=== PATIENT | male | born 1960 | race Caucasian/White ===

== ENCOUNTER → 2016-08-31 | Outpatient (CLI) | payer MEDICAID ==
[~2016-08-31] MED LIST: ASPI325T6 PO; ASPIRIN 32325 MG/TAB PO; CIALIS2.5 MG PO; FLAGYL 250250 MG/TAB PO; LEVAQUIN 750MG750 M1 PO; MILK OF MA400 MG/52 PO; NORCO 325 MG-51 TAB PO; NORCO 325 MG-7.1 TAB PO; OXYCONTIN40 MG PO; ROBAXIN 50500 MG/TAB PO; ROXICODONE 55 MG/TAB PO; SENOKOT8.6 MG PO; SEROQUEL50 MG PO; TOPROL XL 25MG25 MG PO; TYLENOL 500MG500 MG PO; WELLBUTRIN 75MG75 MG PO; XANAX 0.5MG0.5 MG PO
== END ==
LOC: MHCPAIN 09:00
DX: Z53.9 Procedure and treatment not carried out, unspecified reason (principal)
CPT/HCPCS: G0463

== ENCOUNTER → 2016-10-18 | Outpatient (CLI) | payer MEDICAID | LOC: COL.RAD 13:00 | DX: M25.552 Pain in left hip (principal); M25.551 Pain in right hip | CPT/HCPCS: G0260; J3301 ==

== ENCOUNTER → 2016-12-12 | Outpatient (CLI) | payer MEDICAID | LOC: MHCPAIN 09:37 | DX: G89.29 Other chronic pain (principal); M47.27 Other spondylosis with radiculopathy, lumbosacral region; M96.1 Postlaminectomy syndrome, not elsewhere classified; M53.3 Sacrococcygeal disorders, not elsewhere classified | CPT/HCPCS: G0463 ==

== ENCOUNTER → 2017-01-02 | Outpatient (CLI) | payer MEDICAID | LOC: COL.RAD 13:00 | DX: M53.3 Sacrococcygeal disorders, not elsewhere classified (principal) | CPT/HCPCS: G0260; J3301 ==

== ENCOUNTER → 2017-01-19 | Outpatient (CLI) | payer MEDICAID | LOC: BHSO 09:10 | DX: Z01.818 Encounter for other preprocedural examination (principal) ==

== ENCOUNTER → 2017-04-05 | Outpatient (CLI) | payer MEDICAID | LOC: MHCPAIN 09:23 | DX: G89.29 Other chronic pain (principal); M47.27 Other spondylosis with radiculopathy, lumbosacral region; M53.3 Sacrococcygeal disorders, not elsewhere classified; M96.1 Postlaminectomy syndrome, not elsewhere classified; Z79.82 Long term (current) use of aspirin | CPT/HCPCS: G0463 ==

== ENCOUNTER → 2017-04-12 | Outpatient (CLI) | payer MEDICAID | LOC: MHCPAIN 10:58 | DX: G89.29 Other chronic pain (principal); M47.27 Other spondylosis with radiculopathy, lumbosacral region; M53.3 Sacrococcygeal disorders, not elsewhere classified; M96.1 Postlaminectomy syndrome, not elsewhere classified; Z79.82 Long term (current) use of aspirin | CPT/HCPCS: G0463 ==

== ENCOUNTER → 2017-05-23 | Outpatient (CLI) | payer MEDICAID | LOC: MHCPAIN 11:56 | DX: G89.29 Other chronic pain (principal); M47.27 Other spondylosis with radiculopathy, lumbosacral region; M53.3 Sacrococcygeal disorders, not elsewhere classified; M96.1 Postlaminectomy syndrome, not elsewhere classified | CPT/HCPCS: G0463 ==

== ENCOUNTER → 2017-05-25 | Outpatient (CLI) | payer MEDICAID | LOC: MHCPAIN 13:11 | DX: M54.16 Radiculopathy, lumbar region (principal); M96.1 Postlaminectomy syndrome, not elsewhere classified | CPT/HCPCS: J0690; J2250; J3010 ==

== ENCOUNTER → 2017-06-02 | Outpatient (CLI) | payer MEDICAID | LOC: MHCPAIN 09:12 | DX: G89.29 Other chronic pain (principal); M47.27 Other spondylosis with radiculopathy, lumbosacral region; M53.3 Sacrococcygeal disorders, not elsewhere classified; M96.1 Postlaminectomy syndrome, not elsewhere classified; Z79.82 Long term (current) use of aspirin | CPT/HCPCS: G0463 ==

== ENCOUNTER → 2017-07-06 | Outpatient (CLI) | payer MEDICAID | LOC: MHCPAIN 11:02 | DX: M47.817 Spondylosis without myelopathy or radiculopathy, lumbosacral region (principal); M53.3 Sacrococcygeal disorders, not elsewhere classified; Z98.1 Arthrodesis status ==

== ENCOUNTER → 2017-07-10 | Outpatient (CLI) | payer MEDICAID | LOC: MHCPAIN 15:50 | DX: G89.29 Other chronic pain (principal); M47.27 Other spondylosis with radiculopathy, lumbosacral region; M53.3 Sacrococcygeal disorders, not elsewhere classified; M96.1 Postlaminectomy syndrome, not elsewhere classified | CPT/HCPCS: G0463 ==

== ENCOUNTER → 2017-07-27 | Outpatient (CLI) | payer MEDICAID | LOC: MHCPAIN 09:41 | DX: M47.817 Spondylosis without myelopathy or radiculopathy, lumbosacral region (principal) | CPT/HCPCS: J1100; J2250; J3010 ==

== ENCOUNTER → 2017-08-28 | Outpatient (CLI) | payer MEDICAID | LOC: MHCPAIN 10:22 | DX: G89.29 Other chronic pain (principal); M47.27 Other spondylosis with radiculopathy, lumbosacral region; M53.3 Sacrococcygeal disorders, not elsewhere classified; M96.1 Postlaminectomy syndrome, not elsewhere classified | CPT/HCPCS: G0463 ==

== ENCOUNTER → 2017-09-21 | Outpatient (CLI) | payer MEDICAID | LOC: MHCPAIN 12:51 | DX: M51.16 Intervertebral disc disorders with radiculopathy, lumbar region (principal); M96.1 Postlaminectomy syndrome, not elsewhere classified; Z98.1 Arthrodesis status | CPT/HCPCS: J1040; Q9967 ==

== ENCOUNTER → 2017-10-10 | Outpatient (CLI) | payer MEDICAID | LOC: MHCPAIN 13:13 | DX: G89.29 Other chronic pain (principal); M47.817 Spondylosis without myelopathy or radiculopathy, lumbosacral region; M54.16 Radiculopathy, lumbar region; M53.3 Sacrococcygeal disorders, not elsewhere classified; M96.1 Postlaminectomy syndrome, not elsewhere classified | CPT/HCPCS: G0463 ==

== ENCOUNTER → 2017-12-01 | Outpatient (CLI) | payer MEDICAID | LOC: MHCPAIN 11:41 | DX: G89.29 Other chronic pain (principal); M47.817 Spondylosis without myelopathy or radiculopathy, lumbosacral region; M54.16 Radiculopathy, lumbar region; M53.3 Sacrococcygeal disorders, not elsewhere classified; M96.1 Postlaminectomy syndrome, not elsewhere classified | CPT/HCPCS: G0463 ==

== ENCOUNTER → 2018-01-10 | Outpatient (CLI) | payer BC | LOC: MHCPAIN 11:45 | DX: G89.29 Other chronic pain (principal); M47.817 Spondylosis without myelopathy or radiculopathy, lumbosacral region; M54.16 Radiculopathy, lumbar region; M53.3 Sacrococcygeal disorders, not elsewhere classified; M96.1 Postlaminectomy syndrome, not elsewhere classified | CPT/HCPCS: G0463 ==

== ENCOUNTER → 2018-01-11 | Outpatient (CLI) | payer BC | LOC: MHCPAIN 09:50 | DX: M47.817 Spondylosis without myelopathy or radiculopathy, lumbosacral region (principal); M53.3 Sacrococcygeal disorders, not elsewhere classified ==

== ENCOUNTER → 2018-03-15 | Outpatient (CLI) | payer BC | LOC: MHCPAIN 08:20 | DX: M51.36 Other intervertebral disc degeneration, lumbar region (principal) | CPT/HCPCS: J1040; Q9967 ==

== ENCOUNTER → 2018-06-12 | Outpatient (CLI) | payer BC | LOC: MHCPAIN 09:05 | DX: G89.29 Other chronic pain (principal); M47.817 Spondylosis without myelopathy or radiculopathy, lumbosacral region; M54.16 Radiculopathy, lumbar region; M53.3 Sacrococcygeal disorders, not elsewhere classified; M96.1 Postlaminectomy syndrome, not elsewhere classified | CPT/HCPCS: G0463 ==

== ENCOUNTER → 2018-07-30 | Outpatient (CLI) | payer BC | LOC: MHCPAIN 12:01 | DX: M47.817 Spondylosis without myelopathy or radiculopathy, lumbosacral region (principal); M54.16 Radiculopathy, lumbar region ==

== ENCOUNTER → 2018-08-09 | Outpatient (CLI) | payer BC | LOC: MHCPAIN 13:51 | DX: M47.817 Spondylosis without myelopathy or radiculopathy, lumbosacral region (principal); M54.16 Radiculopathy, lumbar region | CPT/HCPCS: J1100; J2250; J3010 ==

== ENCOUNTER → 2018-09-06 | Outpatient (CLI) | payer BC | LOC: MHCPAIN 11:20 | DX: G89.29 Other chronic pain (principal); M47.817 Spondylosis without myelopathy or radiculopathy, lumbosacral region; M54.16 Radiculopathy, lumbar region; M53.3 Sacrococcygeal disorders, not elsewhere classified; M96.1 Postlaminectomy syndrome, not elsewhere classified | CPT/HCPCS: G0463; J1040; Q9967 ==

== ENCOUNTER → 2018-10-02 | Outpatient (CLI) | payer BC | LOC: MHCPAIN 09:48 | DX: G89.29 Other chronic pain (principal); M47.817 Spondylosis without myelopathy or radiculopathy, lumbosacral region; M54.16 Radiculopathy, lumbar region; M53.3 Sacrococcygeal disorders, not elsewhere classified; M96.1 Postlaminectomy syndrome, not elsewhere classified | CPT/HCPCS: G0463 ==

== ENCOUNTER → 2018-11-08 | Outpatient (CLI) | payer BC | LOC: MHCPAIN 10:44 | DX: M47.817 Spondylosis without myelopathy or radiculopathy, lumbosacral region (principal); M54.16 Radiculopathy, lumbar region; G89.29 Other chronic pain; M53.3 Sacrococcygeal disorders, not elsewhere classified; M96.1 Postlaminectomy syndrome, not elsewhere classified ==

== ENCOUNTER → 2018-11-29 | Outpatient (CLI) | payer BC | LOC: MHCPAIN 10:12 | DX: M47.817 Spondylosis without myelopathy or radiculopathy, lumbosacral region (principal); M54.16 Radiculopathy, lumbar region; M53.3 Sacrococcygeal disorders, not elsewhere classified; M96.1 Postlaminectomy syndrome, not elsewhere classified; G89.29 Other chronic pain | CPT/HCPCS: G0463 ==

== ENCOUNTER → 2018-12-12 | Outpatient (CLI) | payer BC | LOC: MHCPAIN 09:08 | DX: G89.29 Other chronic pain (principal); M47.817 Spondylosis without myelopathy or radiculopathy, lumbosacral region; M54.16 Radiculopathy, lumbar region; M53.3 Sacrococcygeal disorders, not elsewhere classified; M96.1 Postlaminectomy syndrome, not elsewhere classified | CPT/HCPCS: G0463 ==

== ENCOUNTER → 2018-12-13 | Outpatient (CLI) | payer BC | LOC: MHCPAIN 09:44 | DX: M47.817 Spondylosis without myelopathy or radiculopathy, lumbosacral region (principal); M96.1 Postlaminectomy syndrome, not elsewhere classified; M54.12 Radiculopathy, cervical region | CPT/HCPCS: J1040; Q9967 ==

== ENCOUNTER → 2019-03-11 | Outpatient (CLI) | payer BC ==
[2019-03-11 17:25] LABS: HEMATOCRIT 37.2 % (42.0-52.0); HEMOGLOBIN 12.4 g/dl (13.5-18.0); MEAN CELL VOLUME 86 fl (80.0-100.0); MEAN CORPUSCULAR HEMOGLOBIN 29 pg (27.0-31.0); MEAN CORPUSCULAR HGB CONC 33 g/dl (33.0-37.0); MEAN PLATELET VOLUME 11.2 fl (7.4-10.4); PLATELET COUNT 102 K/mm3 (130-400); RED BLOOD COUNT 4.35 M/mm3 (4.20-5.60); REDCELL DISTRIBUTION WIDTH-CV 13.2 % (11.5-14.5)
[2019-03-11 17:50] LABS: ERYTHROCYTE SEDIMENTATION RATE 12 mm/hr (0-30)
== END ==
LOC: COL.LAB 16:52
PROVIDERS: Orthopaedic Surgery
DX: M25.551 Pain in right hip (principal); Z96.641 Presence of right artificial hip joint

== ENCOUNTER → 2019-04-01 | Outpatient (CLI) | payer BC | LOC: COL.RAD 09:17 | DX: M76.891 Other specified enthesopathies of right lower limb, excluding foot (principal) | CPT/HCPCS: J3301; Q9967 ==

== ENCOUNTER → 2019-05-06 | Outpatient (CLI) | payer BC | LOC: MHCPAIN 10:56 | DX: G89.29 Other chronic pain (principal); M47.817 Spondylosis without myelopathy or radiculopathy, lumbosacral region; M54.16 Radiculopathy, lumbar region; M53.3 Sacrococcygeal disorders, not elsewhere classified; M96.1 Postlaminectomy syndrome, not elsewhere classified | CPT/HCPCS: G0463 ==

== ENCOUNTER → 2019-05-09 | Outpatient (CLI) | payer BC | LOC: MHCPAIN 12:47 | DX: M47.817 Spondylosis without myelopathy or radiculopathy, lumbosacral region (principal); M54.16 Radiculopathy, lumbar region | CPT/HCPCS: J1100; Q9967 ==

== ENCOUNTER → 2019-07-31 | Outpatient (CLI) | payer BC | LOC: MHCPAIN 10:53 | DX: M47.817 Spondylosis without myelopathy or radiculopathy, lumbosacral region (principal); M54.16 Radiculopathy, lumbar region | CPT/HCPCS: G0463 ==

== ENCOUNTER → 2019-08-29 | Outpatient (CLI) | payer BC | LOC: MHCPAIN 08-22 16:41 | DX: M96.1 Postlaminectomy syndrome, not elsewhere classified (principal); M54.16 Radiculopathy, lumbar region | CPT/HCPCS: J1100; Q9967 ==

== ENCOUNTER → 2020-01-15 | Outpatient (CLI) | payer BC | LOC: MHCPAIN 10:48 | DX: M47.817 Spondylosis without myelopathy or radiculopathy, lumbosacral region (principal); M54.5 Low back pain; M53.3 Sacrococcygeal disorders, not elsewhere classified; M96.1 Postlaminectomy syndrome, not elsewhere classified; M54.16 Radiculopathy, lumbar region; G89.29 Other chronic pain | CPT/HCPCS: G0463 ==

== ENCOUNTER → 2020-01-16 | Outpatient (CLI) | payer BC | LOC: MHCPAIN 11:09 | DX: M47.817 Spondylosis without myelopathy or radiculopathy, lumbosacral region (principal); M53.3 Sacrococcygeal disorders, not elsewhere classified; M96.1 Postlaminectomy syndrome, not elsewhere classified; G89.29 Other chronic pain | CPT/HCPCS: J1100; Q9967 ==

== ENCOUNTER → 2020-05-19 | Outpatient (CLI) | payer BC | LOC: MHCPAIN 09:28 | DX: M47.817 Spondylosis without myelopathy or radiculopathy, lumbosacral region (principal); M96.1 Postlaminectomy syndrome, not elsewhere classified; M54.5 Low back pain; M53.3 Sacrococcygeal disorders, not elsewhere classified; G89.29 Other chronic pain; M54.16 Radiculopathy, lumbar region | CPT/HCPCS: G0463 ==

== ENCOUNTER → 2020-05-21 | Outpatient (CLI) | payer BC | LOC: MHCPAIN 10:12 | DX: M47.817 Spondylosis without myelopathy or radiculopathy, lumbosacral region (principal); M96.1 Postlaminectomy syndrome, not elsewhere classified; M54.16 Radiculopathy, lumbar region | CPT/HCPCS: G0260; J1100; Q9967 ==

== ENCOUNTER → 2020-09-22 | Outpatient (CLI) | payer BC | LOC: MHCPAIN 10:43 | DX: M47.816 Spondylosis without myelopathy or radiculopathy, lumbar region (principal); M96.1 Postlaminectomy syndrome, not elsewhere classified; M54.16 Radiculopathy, lumbar region; M53.3 Sacrococcygeal disorders, not elsewhere classified; G89.29 Other chronic pain | CPT/HCPCS: G0463 ==

== ENCOUNTER → 2020-09-24 | Outpatient (CLI) | payer BC | LOC: MHCPAIN 11:01 | DX: M47.817 Spondylosis without myelopathy or radiculopathy, lumbosacral region (principal); M96.1 Postlaminectomy syndrome, not elsewhere classified; M53.3 Sacrococcygeal disorders, not elsewhere classified; M54.16 Radiculopathy, lumbar region | CPT/HCPCS: J1100; Q9967 ==

== ENCOUNTER → 2021-01-19 | Outpatient (CLI) | payer BC | LOC: MHCPAIN 09:30 | DX: M47.817 Spondylosis without myelopathy or radiculopathy, lumbosacral region (principal); M53.3 Sacrococcygeal disorders, not elsewhere classified; M54.16 Radiculopathy, lumbar region; M96.1 Postlaminectomy syndrome, not elsewhere classified | CPT/HCPCS: G0463 ==

== ENCOUNTER → 2021-01-21 | Outpatient (CLI) | payer BC | LOC: MHCPAIN 12:22 | DX: M47.816 Spondylosis without myelopathy or radiculopathy, lumbar region (principal); M96.1 Postlaminectomy syndrome, not elsewhere classified; M53.3 Sacrococcygeal disorders, not elsewhere classified; M54.16 Radiculopathy, lumbar region | CPT/HCPCS: J1100; Q9967 ==

== ENCOUNTER → 2021-05-24 | Outpatient (CLI) | payer BC | LOC: MHCPAIN 14:55 | DX: M47.817 Spondylosis without myelopathy or radiculopathy, lumbosacral region (principal); M53.3 Sacrococcygeal disorders, not elsewhere classified; M54.16 Radiculopathy, lumbar region; M96.1 Postlaminectomy syndrome, not elsewhere classified | CPT/HCPCS: G0463 ==

== ENCOUNTER → 2021-05-31 | Outpatient (CLI) | payer BC | LOC: MHCPAIN 14:16 | DX: M47.816 Spondylosis without myelopathy or radiculopathy, lumbar region (principal); M96.1 Postlaminectomy syndrome, not elsewhere classified; M53.3 Sacrococcygeal disorders, not elsewhere classified; M54.16 Radiculopathy, lumbar region | CPT/HCPCS: J1100; Q9967 ==

== ENCOUNTER → 2021-06-29 | Outpatient (CLI) | payer BC | LOC: MHCPAIN 08:47 | DX: M47.817 Spondylosis without myelopathy or radiculopathy, lumbosacral region (principal); M53.3 Sacrococcygeal disorders, not elsewhere classified; M96.1 Postlaminectomy syndrome, not elsewhere classified | CPT/HCPCS: G0463 ==

== ENCOUNTER → 2021-07-08 | Outpatient (CLI) | payer BC | LOC: MHCPAIN 09:02 | DX: M47.817 Spondylosis without myelopathy or radiculopathy, lumbosacral region (principal); M53.3 Sacrococcygeal disorders, not elsewhere classified; M54.50 Low back pain, unspecified ==

== ENCOUNTER → 2021-08-05 | Outpatient (CLI) | payer BC | LOC: MHCPAIN 07:55 | DX: M47.817 Spondylosis without myelopathy or radiculopathy, lumbosacral region (principal); M54.50 Low back pain, unspecified; M53.3 Sacrococcygeal disorders, not elsewhere classified; M96.1 Postlaminectomy syndrome, not elsewhere classified | CPT/HCPCS: G0463; J1100; J2250; J3010 ==

== ENCOUNTER → 2021-10-05 | Outpatient (CLI) | payer BC | LOC: MHCPAIN 09:57 | DX: M47.817 Spondylosis without myelopathy or radiculopathy, lumbosacral region (principal); M53.3 Sacrococcygeal disorders, not elsewhere classified; M54.16 Radiculopathy, lumbar region; M96.1 Postlaminectomy syndrome, not elsewhere classified | CPT/HCPCS: G0463 ==

== ENCOUNTER → 2021-10-21 | Outpatient (CLI) | payer BC | LOC: MHCPAIN 10:28 | DX: M47.816 Spondylosis without myelopathy or radiculopathy, lumbar region (principal); M96.1 Postlaminectomy syndrome, not elsewhere classified; M54.16 Radiculopathy, lumbar region; M53.3 Sacrococcygeal disorders, not elsewhere classified | CPT/HCPCS: J1100; Q9967 ==

== ENCOUNTER → 2022-03-14 | Outpatient (CLI) | payer BC | LOC: MHCPAIN 10-14 09:38 | DX: M47.816 Spondylosis without myelopathy or radiculopathy, lumbar region (principal); M54.16 Radiculopathy, lumbar region; M96.1 Postlaminectomy syndrome, not elsewhere classified; M53.3 Sacrococcygeal disorders, not elsewhere classified | CPT/HCPCS: G0463; J1100; Q9967 ==

== ENCOUNTER → 2023-05-25 | Outpatient (CLI) | payer BC | LOC: CANSCHCLI → COL.RAD 12:11 | DX: M47.812 Spondylosis without myelopathy or radiculopathy, cervical region (principal); M48.02 Spinal stenosis, cervical region; Z87.81 Personal history of (healed) traumatic fracture ==

== ENCOUNTER → 2023-11-30 | Outpatient (CLI) | payer BC ==
[~2023-11-30] MED LIST changes: +Iohexol 300 - 10 ML VIAL ONE; +Lidocaine PF 2% (20 MG/ML) 2 ML VIAL ONE
== END ==
LOC: MHCPAIN 08:59
DX: M54.16 Radiculopathy, lumbar region (principal); M48.062 Spinal stenosis, lumbar region with neurogenic claudication; M96.1 Postlaminectomy syndrome, not elsewhere classified
CPT/HCPCS: J1100; Q9967

== ENCOUNTER → 2024-04-11 | Outpatient (CLI) | payer BC ==
[~2024-04-11] MED LIST changes: -Iohexol 300 - 10 ML VIAL ONE; -Lidocaine PF 2% (20 MG/ML) 2 ML VIAL ONE
== END ==
LOC: COL.RAD 14:15
DX: K40.90 Unilateral inguinal hernia, without obstruction or gangrene, not specified as recurrent (principal)